=== PATIENT | male | born 1960 | race Caucasian/White ===

== ENCOUNTER → 2019-06-07 | Outpatient (CLI) | payer OTHER ==
[2019-06-07 14:07] LABS: CREATININE 0.9 mg/dL (0.6-1.3)
== END ==
LOC: M.CT 05-30 09:23 → M.LAB 13:30 → M.CT 15:00
PROVIDERS: Family Medicine
DX: R10.31 Right lower quadrant pain (principal); R10.32 Left lower quadrant pain; M54.5 Low back pain; N40.0 Benign prostatic hyperplasia without lower urinary tract symptoms; M47.815 Spondylosis without myelopathy or radiculopathy, thoracolumbar region; M41.85 Other forms of scoliosis, thoracolumbar region; M51.86 Other intervertebral disc disorders, lumbar region; M51.87 Other intervertebral disc disorders, lumbosacral region

== ENCOUNTER → 2019-06-28 | Outpatient (CLI) | payer OTHER | LOC: M.ULTRA 12:48 | DX: M25.462 Effusion, left knee (principal) ==